=== PATIENT | male | born 1950 | race Caucasian/White ===

== ENCOUNTER 2017-05-27 05:01 | Day surgery (SDC) | payer OTHER ==
[2017-05-09 11:38] VITALS: BMI 33.0
[2017-05-26 10:30] VITALS: BMI 32.0
--- NOTE | 2017-05-26 11:48 | History and Physical ---
History & Physical Date May 26, 2017. Chief Complaint hearing loss, chronic otitis media History of Present Illness The patient is a 67 year old male with complaints of chronic otitis media, bilateral with hearing loss Additional History Hepatic Disease: No Endocrine Disorder: No Kidney Disease: No Hypertension: Yes Heart Disease: Yes Bleeding Tendencies: Yes Infectious Diseases: No Allergies Coded Allergies: Adhesives (Verified Allergy, Mild, TAPE TEARS SKIN, 05/26/17) Oxycodone (Verified Allergy, Mild, VERY SLEEPY, 05/26/17) Home Medications Scheduled Aspirin (Aspirin Ec), 81 MG PO QAM Clopidogrel Bisulfate (Plavix), 75 MG PO QAM Fluconazole (Diflucan), 100 MG PO AFTERNOON Folic Acid (Folvite), 1 MG PO QAM Furosemide (Lasix), 20 MG PO QAM Home O2 Therapy (Oxygen), 2 LITERS NA UD Insulin Glargine (Lantus), 65 UNITS SC BID Metoprolol Succinate (Toprol Xl), 25 MG PO BID Pantoprazole (Protonix), 40 MG PO HS Potassium Chloride Pwd (Klor-Con Pwd), 40 MEQ PO QAM Physical Examination Skin: warm/dry, no rash Eyes: normal inspection, EOMI, sclerae normal ENT: normal ENT inspection, pharynx normal Head: normocephalic, atraumatic Neck: supple, no adenopathy, trachea midline Respiratory/Chest: lungs clear, normal breath sounds, no respiratory distress Cardiovascular: regular rate, rhythm, no edema, no murmur Abdomen / GI: normal bowel sounds, non tender Back: normal inspection Extremities: normal inspection, normal range of motion Neurologic/Psych: no motor/sensory deficits, alert, normal reflexes, oriented x 3 Diagnosis otitis media with effusion right ear, mastoiditis and hearing loss left ear Plan of Treatment osteointegrated implant left ear, T tube right ear
[~2017-05-27] VITALS: Ht 182.9 cm; Wt 109.1 kg
[~2017-05-27 05:01] MED LIST: ASPI81TA28 PO; CLOP1TAB5 PO; FLUC100T4 PO; FOLI1TAB7 PO; FURO-85 PO; INSDGI SC; METO25TA3 PO; OXGN; PANT40TA PO; POTA1POW PO
[2017-05-27 05:38] VITALS: BP 143/80; PULSE 92; TEMP 36.6; O2SAT 95; Ht 182.9 cm; Wt 109.1 kg
[2017-05-27] MEDS ORDERED: LACTATED RINGER'S 1000ML 1,000 ML IV SCH (06:00)
[2017-05-27] MEDS ORDERED: CEFAZOLIN 2000 MG/60 ML D5W IV SCH (06:00)
--- NOTE | 2017-05-27 07:01 | History & Physical Bridge Note ---
H&P Re-Evaluation Bridge Note: I have examined the patient, reviewed the History & Physical and in the interval since the performance of the History & Physical I have noted the following changes of clinical significance: No changes noted
[2017-05-27] MEDS ORDERED: GLYCOPYRROLATE INJ 0.2 MG/ML VIAL ONE (07:05)
[2017-05-27] MEDS ORDERED: NEOSTIGMINE METHYLSULFATE 5 MG/5 ML SYR ONE (07:05)
[2017-05-27] MEDS ORDERED: PHENYLEPHRINE HCL INJ 10 MG/ML VIAL ONE (07:05)
[2017-05-27] MEDS ORDERED: ONDANSETRON INJ 2 MG/ML 2 ML VIAL ONE (07:05)
[2017-05-27] MEDS ORDERED: PROPOFOL IV EMULSION 10 MG/ML 20 ML VIAL IV ONE (07:05)
[2017-05-27] MEDS ORDERED: SUCCINYLCHOLINE CHLORIDE 20 MG/ML 10 ML VIAL IV ONE (07:05)
[2017-05-27] MEDS ORDERED: LIDOCAINE HCL 2% 2 ML VIAL (20MG/ML) ONE (07:05)
[2017-05-27] MEDS ORDERED: EpHEDrine SULFATE INJ 50 MG/ML AMP ONE (07:05)
[2017-05-27] MEDS ORDERED: DEXAMETHASONE SOD INJ 4 MG/ML VIAL ONE (07:05)
[2017-05-27] MEDS ORDERED: MIDAZOLAM HCL 1 MG/ML 2ML VIAL ONE (07:06)
[2017-05-27] MEDS ORDERED: FENTANYL CITRATE INJ 50 MCG/1 ML 2 ML VIAL ONE (07:06)
[2017-05-27] MEDS ORDERED: OFLOXACIN 0.3% OP SOLN 5 ML BTL ONE (07:08)
[2017-05-27] MEDS ORDERED: EpHEDrine SULFATE INJ 50 MG/ML AMP IV PRN (07:15)
[2017-05-27] MEDS ORDERED: ATROPINE SULFATE 0.1 MG/ML 5ML SYR IV PRN (07:15)
[2017-05-27] MEDS ORDERED: PROMETHAZINE HCL INJ 6.25 MG in SODIUM CHLORIDE 0.9% 50ML 50 ML IV PRN (07:15)
[2017-05-27] MEDS ORDERED: FENTANYL CITRATE INJ 50 MCG/1 ML 2 ML VIAL IV PRN (07:15)
[2017-05-27] MEDS ORDERED: ONDANSETRON INJ 2 MG/ML 2 ML VIAL IV PRN (07:15)
[2017-05-27] MEDS ORDERED: LIDO 2%/EPINEPHRINE 1:100000 20 ML VIAL INFIL ONE (07:25)
[2017-05-27] MEDS ORDERED: CEFAZOLIN IV 2,000 MG/60 ML D5W IV ONE (07:28)
[2017-05-27] MEDS ORDERED: NURSING VERBAL MED ORDER ONE (07:30)
[2017-05-27] MEDS ORDERED: SODIUM CHLORIDE 0.9% 1000ML 1,000 ML IV SCH (09:07)
--- NOTE | 2017-05-27 09:14 | [facility] Operative Report ---
Operative Report Operative Date May 27, 2017. Pre-Operative Diagnosis Otitis media with effusion right ear, mastoiditis and hearing loss left ear Post-Operative Diagnosis Otitis media with effusion right ear, mastoiditis and hearing loss left ear Procedure(s) Performed Left Ear Osteointegrated Implant and Insertion of Right Ear T Tube Surgeon Dr. 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 He also has fluid behind the right tympanic membrane with an extruded tube that was placed previously. Description of Procedure The patient was brought to the operating room placed in the supine position general anesthesia was induced and he was prepped and draped in the usual sterile manner with Betadine paint. The incision was 55 mm behind the left external auditory meatus and a 55 mm semicircular incision was marked for the implant. Local injection of 2% Xylocaine with 1 100,000 strength epinephrine was used. The skin depth was measured at 5 mm. The semicircular incision was made using the 15 blade carried down to the skin and subcutaneous and temporalis fascia layer exposing the periosteum of the temporal bone. Bleeders were controlled using the Bovie and the bipolar cautery. Cruciate incision was made in the periosteum at the implant site. Periosteum was elevated using the periosteal elevator. The 4 mm guide drill was used initially with a guard and then extended to 4 mm by removing the guard noting the bone at the depth of the hole to be intact. The widening drill was used to create a 4 mm implant site. The titanium implant was then drilled into position and tightened to a 40 Dykes dynes and the magnet was tightened into the implant at 25 Dykes dynes. The skin flap was thinned of temporalis muscle at the implant site. The incision was closed with interrupted 4-0 Vicryl sutures subcutaneously and interrupted 3-0 nylon sutures on the skin. The left ear canal was irrigated clean with saline and a Culberson dressing was placed. Attention was turned to the right ear were in old tube was removed and a new myringotomy incision was made inferiorly and a modified T-tube was inserted without difficulty. The patient her procedure well was taken recovery area in satisfactory condition. I attest to the content of the Intraoperative Record and any orders documented therein. Any exceptions are noted below.
[2017-05-27] MEDS ORDERED: HYDROCODONE/ACETAMOPHEN 5/325MG TAB PO PRN ×2 (09:15)
[2017-05-27] MEDS ORDERED: CEPH500C2 PO (09:16)
[2017-05-27] MEDS ORDERED: HYDR-5688 PO (09:16)
--- NOTE | 2017-05-27 09:17 | Discharge Instructions ---
Discharge Instructions Date of Service May 27, 2017. Admission Reason for Admission: Chronic Otitis Media, Bilateral Discharge Discharge Diagnosis / Problem: same Discharge Goals Goal(s): Improve function, Improve disease control Activity Recommendations Activity Limitations: resume your previous activity . Instructions / Follow-Up Instructions / Follow-Up ACTIVITY RECOMMENDATIONS: * Take it easy today. * Return to regular activity tomorrow. OVER THE COUNTER MEDICATIONS: * You may use Tylenol for pain * Avoid aspirin or aspirin containing products, e.g. as they may increase bleeding. DIET: Resume previous diet RETURN TO SCHOOL/WORK: May return to normal activities tomorrow. SPECIAL CARE INSTRUCTIONS: * Drainage is not unusual during the first few days after placement of tubes. The drainage may be bloody. If it is foul smelling or very thick, please notify the doctor. Call or cell phone . * Keep water out of the ears when shampooing or bathing. Use cotton balls covered with Vaseline or "Macks" ear plugs. * Call physician if increased pain, fever over 101 degrees F. or any problems. FOLLOW UP VISIT: Follow-up Visit with Dr. Luevano in 2 weeks. Please call to schedule. Current Hospital Diet Patient's current hospital diet: Discharge Diet Recommended Diet: Regular Diet Procedures Procedures Performed: Left Ear Osteointegrated Implant and Insertion of Right Ear T Tube Pending Studies Studies pending at discharge: no Medical Emergencies . Who to Call and When: Medical Emergencies: If at any time you feel your situation is an emergency, please call [phone] immediately. . Non-Emergent Contact Non-Emergency issues call your: Primary Care Provider . "Provider Documentation" section prepared by Lucy Luevano. . VTE Core Measure Inpt VTE Proph given/why not?: SCD's [place] Drug Monitoring Program Search Results: no issues identified
--- NOTE | 2017-05-27 09:47 | Anesthesiology Progress Note ---
Anesthesia Post Op Note Date & Time May 27, 2017 at 09:47 Vital Signs Pain Intensity: 0 Vital Signs Past 12 Hours Date Time Temp Pulse Resp B/P (MAP) Pulse Ox O2 Delivery O2 Flow Rate FiO2 05/27/17 09:22 75 22 05/27/17 09:22 75 22 96 05/27/17 09:20 112/65 05/27/17 09:17 73 7 99 05/27/17 09:17 73 7 05/27/17 09:15 119/68 05/27/17 09:12 74 17 05/27/17 09:12 74 17 99 05/27/17 09:10 125/71 05/27/17 09:08 127/71 05/27/17 09:07 79 11 99 05/27/17 09:07 79 11 05/27/17 09:07 36.4 76 16 127/71 99 Oxymask 10 05/27/17 05:38 36.6 92 20 143/80 (101) 95 Room Air Notes Mental Status: alert / awake / arousable, participated in evaluation Pt Amnestic to Procedure: Yes Nausea / Vomiting: adequately controlled Pain: adequately controlled Airway Patency, RR, SpO2: stable & adequate BP & HR: stable & adequate Hydration State: stable & adequate Anesthetic Complications: no major complications apparent
[2017-05-27 10:10] VITALS: BP 119/60; PULSE 84; TEMP 36.7; O2SAT 96
[2017-05-27 10:30] VITALS: BP 153/70; PULSE 89; TEMP 36.7; O2SAT 97
[2017-05-27 11:00] VITALS: BP 144/76; PULSE 91; TEMP 36.7; O2SAT 95
== END 2017-05-27 11:10 | disposition home or self-care (01) ==
LOC: C.ACU 05:01
PROVIDERS: ATTEND Otolaryngology
DX: H65.491 Other chronic nonsuppurative otitis media, right ear (principal); H70.92 Unspecified mastoiditis, left ear; H90.5 Unspecified sensorineural hearing loss; Z79.4 Long term (current) use of insulin; Z79.82 Long term (current) use of aspirin; Z79.899 Other long term (current) drug therapy